=== PATIENT | male | born 1950 | race Hispanic/Latino ===

== ENCOUNTER 2018-06-18 13:59 | Inpatient (IN) | payer MEDICARE ==
[~2018-06-18] VITALS: Ht 162.6 cm; Wt 76.2 kg
[2018-06-18 14:46] LABS: APPEARANCE,URINE Clear (CLEAR); BILIRUBIN,URINE Large (NEGATIVE); COLOR,URINE Dark Yellow (YELLOW); GLUCOSE, URINE (UA) Negative (NEGATIVE); KETONES,URINE Negative (NEGATIVE); LEUKOCYTE ESTERASE ,URINE Small (NEGATIVE); NITRATE,URINE Negative (NEGATIVE); OCCULT BLOOD,URINE Negative (NEGATIVE); PROTEIN,URINE Trace (NEGATIVE)
[2018-06-18 15:04] LABS: BACTERIA,URINE Few /HPF (None Seen); RBC,URINE None Seen /HPF (0-1); WBC,URINE 0-1 /HPF (0-1)
[2018-06-18 15:22] LABS: CREATININE 0.9 mg/dL (0.5-1.5); POTASSIUM 3.5 mmol/L (3.5-5.1)
[2018-06-18 15:23] LABS: INR 0.95 (0.85-1.15); PARTIAL THROMBOPLASTIN TIME 29.6 SEC (26.3-35.5)
[2018-06-18 15:24] LABS: BASOPHILS % (AUTO) 0.9 % (0.0-5.0); EOSINOPHILS % (AUTO) 0.5 % (0.0-8.0); HEMATOCRIT 32.6 % (42-54); LYMPHOCYTES % (AUTO) 67.9 % (21.0-51.0); MEAN CORPUSCULAR HEMOGLOBIN 31.6 pg (27.0-33.0); MEAN CORPUSCULAR HGB CONC 35.8 g/dL (32.0-36.0); MEAN CORPUSCULAR VOLUME 88.3 fL (79-99); NEUTROPHILS % (AUTO) 25.7 % (40.0-77.0); NUCLEATED RED BLOOD CELLS 0.1 % (0.0-0.19); PLATELET COUNT (AUTO) 357 K/uL (130-400); RED BLOOD CELL COUNT(AUTO) 3.69 MIL/uL (4.50-6.20); RED CELL DISTRIBUTION WIDTH 17.2 % (11.0-15.5); WHITE BLOOD COUNT (AUTO) 11.6 K/uL (4.8-10.8)
[2018-06-18 15:35] LABS: ALBUMIN 2.9 g/dL (3.5-5.0); TOTAL PROTEIN, SERUM 6.6 g/dL (6.0-8.3)
[2018-06-18 15:40] LABS: BILIRUBIN,TOTAL 23.1 mg/dL (0.2-1.0)
[2018-06-18] MEDS ORDERED: MORPHINE SULFATE 2 MG/ML 1ML SYG IV PRN (17:00)
[2018-06-18 20:20] VITALS: BP 145/74
[2018-06-18 23:20] VITALS: BP 139/70
[2018-06-19] MEDS: SODIUM CHLORIDE 0.9% 1000ML 1,000 ML IV SCH ×3 (00:02→09:59)
[2018-06-19] MEDS: FAMOTIDINE/PF 20 MG/2 ML VIAL IV SCH ×2 (00:07→10:00)
[2018-06-19] MEDS ORDERED: PRAV20TA4 PO (01:03)
[2018-06-19] MEDS ORDERED: GLIP1TAB5 PO (01:03)
[2018-06-19] MEDS ORDERED: LOSA100T20 PO (01:03)
[2018-06-19] MEDS ORDERED: HYDR12.530 PO (01:03)
[2018-06-19] MEDS ORDERED: HYDR-3421 PO (01:03)
[2018-06-19 03:42] LABS: BASOPHILS % (AUTO) 0.2 % (0.0-5.0); EOSINOPHILS % (AUTO) 0.7 % (0.0-8.0); HEMATOCRIT 32.2 % (42-54); LYMPHOCYTES % (AUTO) 51.9 % (21.0-51.0); MEAN CORPUSCULAR HEMOGLOBIN 30.5 pg (27.0-33.0); MEAN CORPUSCULAR HGB CONC 34.7 g/dL (32.0-36.0); MEAN CORPUSCULAR VOLUME 87.8 fL (79-99); MONOCYTES % (AUTO) 6.8 % (3.0-13.0); NEUTROPHILS % (AUTO) 40.4 % (40.0-77.0); NUCLEATED RED BLOOD CELLS 0.2 % (0.0-0.19); PLATELET COUNT (AUTO) 303 K/uL (130-400); RED BLOOD CELL COUNT(AUTO) 3.67 MIL/uL (4.50-6.20); RED CELL DISTRIBUTION WIDTH 17.8 % (11.0-15.5)
[2018-06-19 03:49] LABS: INR 0.93 (0.85-1.15); PARTIAL THROMBOPLASTIN TIME 29.6 SEC (26.3-35.5); PROTHROMBIN TIME 9.8 SEC (9.6-11.6)
[2018-06-19 04:03] LABS: ALBUMIN 2.5 g/dL (3.5-5.0); CREATININE 0.8 mg/dL (0.5-1.5); POTASSIUM 3.5 mmol/L (3.5-5.1); TOTAL PROTEIN, SERUM 5.9 g/dL (6.0-8.3)
[2018-06-19 04:06] LABS: BILIRUBIN,DIRECT 17.3 mg/dL (0.0-0.3); BILIRUBIN,TOTAL 20.4 mg/dL (0.2-1.0)
[2018-06-19 04:17] VITALS: BP 130/63
[2018-06-19 07:28] VITALS: BP 90/55
[2018-06-19] MEDS ORDERED: ENOXAPARIN SODIUM 30 MG/0.3 ML SQ SCH (09:00)
[2018-06-19 11:53] VITALS: BP 144/59
[2018-06-19] MEDS ORDERED: GADODIAMIDE 10 MMOL/20 ML ML IV ONE (14:11)
[2018-06-19 16:05] VITALS: BP 142/60
== END 2018-06-19 17:22 | disposition home or self-care (01) | DRG 446 ==
LOC: EDH 13:59 → EDHIP 16:58 → 2AH 20:21
PROVIDERS: ADMIT Hospitalist; ATTEND Hospitalist
DX: K83.1 Obstruction of bile duct (principal); K82.8 Other specified diseases of gallbladder; E11.9 Type 2 diabetes mellitus without complications; E78.00 Pure hypercholesterolemia, unspecified; I10 Essential (primary) hypertension; K40.90 Unilateral inguinal hernia, without obstruction or gangrene, not specified as recurrent; Z87.891 Personal history of nicotine dependence; C80.1 Malignant (primary) neoplasm, unspecified
CPT/HCPCS: 36415; 74176; 74183; 76700; 80053; 80076; 81001; 82948; 83690; 85025; 85610; 85730; A9579; J3490; J7030